=== PATIENT | female | born 1985 | race Caucasian/White ===

== ENCOUNTER 2017-01-12 13:13 | Outpatient (CLI) | END 2017-01-12 13:14 | disposition short-term general hospital (02) | LOC: AMBL 13:13 | PROVIDERS: ATTEND Internal Medicine Geriatric Medicine | DX: R55 Syncope and collapse (principal); R10.9 Unspecified abdominal pain; R10.2 Pelvic and perineal pain; R11.0 Nausea ==

== ENCOUNTER 2017-04-12 02:44 | Emergency (ER) ==
[2017-04-12 02:59] VITALS: BP 127/83; TEMP 98.5; BMI 39.9
[2017-04-12] MEDS ORDERED: SODIUM CHLORIDE 1,000 ML IV STA (03:19)
[2017-04-12] MEDS ORDERED: MORPHINE 2 MG/ML SYRINGE IVP PRN (03:19)
[2017-04-12] MEDS ORDERED: TORADOL IVP STA (03:20)
[2017-04-12] MEDS ORDERED: ZOFRAN 4 MG/2 ML IVP STA (03:20)
[2017-04-12] MEDS ORDERED: MORPHINE 2 MG/ML SYRINGE ONE (04:10)
--- NOTE | 2017-04-12 04:45 | CT ---
EXAM: CT scan abdomen pelvis without contrast HISTORY: Flank pain COMPARISON: CT scan abdomen pelvis 03/03/2011 FINDINGS: Contiguous axial images obtained from lung bases to the symphysis pubis without contrast u tilizing 3-mm collimation. Sagittal and coronal reconstructions were imaged and reviewed.. The visu alized lung bases are clear. The gallbladder is fluid filled without cholelithiasis. The liver, lawson creas, spleen and adrenal glands have normal unenhanced CT appearance.. Nonobstructive renal calculi are noted bilaterally in the 3 mm range. There is no evidence of ureterolithiasis. The abdominal a lachelle is normal in course and caliber. There is a normal appendix.. There has been prior hysterectom y. The adnexal abnormalities identified. There are no lytic or blastic lesions. IMPRESSION: Nonobstructive bilateral nephrolithiasis. Status post hysterectomy. No evidence of free fluid or inflammatory changes.
--- NOTE | 2017-04-12 05:40 | ED.PDOC ---
General ED Provider: Dr. MARY PAREKH-ER Chief Complaint: Back Pain Stated Complaint: my back hurts--i have kidney stones Time Seen by Physician: 03:00 Mode of Arrival: Walk-In Information Source: Patient Exam Limitations: No limitations Nursing and Triage Documentation Reviewed and Agree: Yes Reviewed sepsis parameters & appropriate labs ordered?: Yes System Inflammatory Response Syndrome: Not Applicable Sepsis Protocol: For patient's 13 years and over: Temp is 96.8 and below OR 101 and greater Pulse >90 BPM Resp >20/minute Acutely Altered Mental Status Are patient's symptoms suggestive of a new infection, such as: -Pneumonia -Skin, Soft Tissue -Endocarditis -UTI -Bone, Joint Infection -Implantable Device -Acute Abdominal Infection -Wound Infection -Meningitis -Blood Stream Catheter Infection -Unknown Musculoskeletal Complaint Exam - Back Pain Complaint/Exam Mechanism of Injury: Reports: No known trauma Onset/Duration: several hours Symptoms Are: Still present Timing: Constant Initial Severity: Mild Current Severity: Moderate Location: Reports: Discrete Character: Reports: Dull, Spasmodic Aggravating: Reports: Movements, Lifting Alleviating: Reports: None Associated Signs and Symptoms: Reports: Abdominal pain, Flank pain. Denies: Swelling, Redness, Bruising, Fever, Weakness, Numbness, Tingling, Bladder incontinence Related History: Reports: Similar episode Paraspinal Muscle Spasm: No Scoliosis: No SLR Test: Right Negative, Left Negative Hip Motion Testing Pain: Right Negative, Left Negative Focal Weakness: Present: None Focal Sensory Loss: Present: None Gait: Present: Abnormal Differential Diagnoses: Herniated Disk, Renal Colic, Strain, Sprain Review of Systems - Review Of Systems Constitutional: Reports: No symptoms Eyes: Reports: No symptoms Ears, Nose, Mouth, Throat: Reports: No symptoms Respiratory: Reports: No symptoms Cardiac: Reports: No symptoms GI: Reports: No symptoms : Reports: No symptoms Musculoskeletal: Reports: Back pain, Muscle pain Skin: Reports: No symptoms Neurological: Reports: No symptoms Endocrine: Reports: No symptoms Hematologic/Lymphatic: Reports: No symptoms All Other Systems: Reviewed and Negative Past Medical History - Past Medical History Previously Healthy: Yes Endocrine: Reports: Unknown Cardiovascular: Reports: Unknown Respiratory: Reports: Unknown Hematological: Reports: Unknown Gastrointestinal: Reports: Unknown Genitourinary: Reports: Kidney stones Neuro/Psych: Reports: None Musculoskeletal: Reports: None Cancer: Reports: None Last Menstrual Period: 2013 - Surgical History General Surgical History: Reports: Unknown - Family History Family History: Reports: Unknown - Social History Smoking Status: Current every day smoker, Light tobacco smoker Hx Substance Use: No Alcohol Screening: None - Immunizations Tetanus Shot up to Date: Yes Physical Exam - Physical Exam Appearance: Well-appearing, No pain distress, Well-nourished Pain Distress: Mild Eyes: MARTIN, EOMI, Conjunctiva clear ENT: Ears normal, Nose normal, Oropharynx normal Neck: Supple Respiratory: Airway patent, Breath sounds clear, Breath sounds equal, Respirations nonlabored Cardiovascular: RRR, Pulses normal, No rub, No murmur GI/: Soft, Nontender, No masses, Bowel sounds normal, No Organomegaly Musculoskeletal: No edema, No calf tenderness, Limited ROM Skin: Warm, Dry, Normal color Neurological: Sensation intact, Motor intact, Reflexes intact, Cranial nerves intact, Alert, Oriented Psychiatric: Affect appropriate, Mood appropriate Interpretation - Radiology Interpretation Radiology Interpretation By: Radiologist Radiology Results: Negative Exam Interpreted: CT Scan Critical Care Note - Critical Care Note Total Time (mins): 0 Course - Course Hematology/Chemistry: 04/12/17 03:45 04/12/17 03:45 Orders, Labs, Meds: Lab Review 04/12/17 04/12/17 04/12/17 03:05 03:45 03:45 WBC 9.53 RBC 3.90 L Hgb 13.2 Hct 38.3 MCV 98.2 MCH 33.8 H MCHC 34.5 RDW Coeff of Desmond 13.3 Plt Count 277 Immature Gran % (Auto) 0.2 Neut % (Auto) 46.6 Lymph % (Auto) 44.7 Glasscock % (Auto) 5.2 Eos % (Auto) 2.6 Baso % (Auto) 0.7 Immature Gran # (Auto) 0.0 Neut # 4.4 Lymph # 4.3 H Glasscock # 0.5 Eos # 0.3 Baso # 0.1 Sodium 144 Potassium 3.8 Chloride 112 H Carbon Dioxide 19 L Anion Gap 16.8 BUN 17 Creatinine 0.85 Estimated GFR (MDRD) 79.00 BUN/Creatinine Ratio 20.00 Glucose 72 Calcium 9.0 Total Bilirubin 0.3 AST 15 ALT 19 Alkaline Phosphatase 67 Total Protein 7.0 Albumin 3.6 Globulin 3.4 Albumin/Globulin Ratio 1.06 Urine Color Yellow Urine Clarity Clear Urine pH 6.0 Ur Specific [place] 1.025 Urine Protein Negative Urine Glucose (UA) Negative Urine Ketones Negative Urine Blood Negative Urine Nitrite Negative Urine Bilirubin Negative Urine Urobilinogen 0.2 Ur Leukocyte Esterase Negative Orders Category Date Time Status ED IV/MEDIPORT/POWERPORT .ONCE EMERGENCY 04/12/17 03:19 Active CBC W/ AUTO DIFF Stat LAB 04/12/17 03:45 Completed COMPREHENSIVE METABOLIC PANEL Stat LAB 04/12/17 03:45 Completed UA [URINALYSIS C & S IF INDICATED] Stat LAB 04/12/17 03:05 Completed 0.9 % Sodium Chloride [Saline Flush] MEDS 04/12/17 03:19 Ordered 1 syr IVF PRN PRN Ketorolac Tromethamine [Toradol] MEDS 04/12/17 03:20 Discontinued 30 mg IVP ONCE STA Morphine Sulfate [Morphine 2 mg/ml Syringe] MEDS 04/12/17 03:19 Ordered 2 mg IVP Q4H PRN Ondansetron HCl/Pf [Zofran 4 mg/2 ml] MEDS 04/12/17 03:20 Discontinued 4 mg IVP ONCE STA Sodium Chloride 0.9% [Sodium Chloride] 1,000 ml MEDS 04/12/17 03:19 Active IV 125 mls/hr CT ABDOMEN/PELVIS WO CONTRAST Stat RADS 04/12/17 03:20 Completed Medications Generic Name Dose Route Start Last Admin Trade Name Freq PRN Reason Stop Dose Admin Sodium Chloride 1,000 mls @ 125 mls/hr 04/12/17 03:19 04/12/17 03:54 Sodium Chloride IV 04/12/17 11:18 125 mls/hr .Q8H STA Administration Morphine Sulfate 2 mg 04/12/17 03:19 04/12/17 04:10 Morphine 2 Mg/Ml Syringe IVP 2 mg Q4H PRN Administration Abdominal Pain Sodium Chloride 1 syr 04/12/17 03:19 04/12/17 03:57 Saline Flush IVF 1 syr PRN PRN Administration To flush IV Discontinued Medications Generic Name Dose Route Start Last Admin Trade Name Freq PRN Reason Stop Dose Admin Ketorolac Tromethamine 30 mg 04/12/17 03:20 04/12/17 03:56 Toradol IVP 04/12/17 03:21 30 mg ONCE STA Administration Ondansetron HCl 4 mg 04/12/17 03:20 04/12/17 03:55 Zofran 4 Mg/2 Ml IVP 04/12/17 03:21 4 mg ONCE STA Administration Vital Signs: Temp Pulse Resp BP Pulse Ox 04/12/17 02:46 98.5 F 87 20 127/83 99 Departure - Departure Time of Disposition: 05:40 Disposition: HOME SELF-CARE Discharge Problem: Backache Instructions: Acute Low Back Pain (ED) Condition: Good Pt referred to PMD for follow-up: Yes IPMP verified?: No Additional Instructions: norco 7.5mg q 4hrs prn pain #10==f/u with pcp Allergies/Adverse Reactions: Allergies No Known Drug Allergies Adverse Reaction (Verified 04/12/17 02:58) Home Medications: Ambulatory Orders Albuterol Sulfate [Proair Hfa] 2 puff IH Q4H PRN 04/12/17
== END 2017-04-12 05:52 | disposition home or self-care (01) ==
LOC: ED 02:44
DX: M54.5 Low back pain (principal); R10.9 Unspecified abdominal pain; Z87.442 Personal history of urinary calculi; F17.210 Nicotine dependence, cigarettes, uncomplicated
CPT/HCPCS: 36415; 80053; 81001; 85025; 96361; 96374; 96375; 99283

== ENCOUNTER 2017-10-18 10:10 | Outpatient (CLI) ==
[2017-10-18 14:18] VITALS: BMI 51.1
== END 2017-10-18 10:15 | disposition short-term general hospital (02) ==
LOC: AMBL 10:10
PROVIDERS: ATTEND Internal Medicine
DX: R11.2 Nausea with vomiting, unspecified (principal); R19.7 Diarrhea, unspecified; R10.11 Right upper quadrant pain; R10.12 Left upper quadrant pain

== ENCOUNTER 2017-10-18 10:20 | Observation (INO) ==
[2017-10-18] MEDS ORDERED: MORPHINE 4 MG/ML SYRINGE IVP STA ×3 (10:43→12:05)
[2017-10-18] MEDS ORDERED: ZOFRAN 4 MG/2 ML IVP STA ×2 (10:43→12:05)
[2017-10-18] MEDS ORDERED: SODIUM CHLORIDE 1,000 ML IV STA (10:44)
[2017-10-18] MEDS ORDERED: MORPHINE 4 MG/ML VIAL IVP STA (11:15)
--- NOTE | 2017-10-18 12:12 | DI ---
EXAM: CHEST FRONTAL VIEW HISTORY: Cough. COMPARISON: None FINDINGS: Heart size and mediastinum within normal limits. Lungs are free of infiltrate. No co nsolidation or pleural fluid. There is no pneumothorax or acute bony finding. IMPRESSION: Findings within normal limits.
--- NOTE | 2017-10-18 12:17 | CT ---
EXAM: CT Abdomen without contrast. CT Pelvis without contrast. HISTORY: Right upper quadrant pain. COMPARISON: 04/12/2017. TECHNIQUE: Multiple axial images of the abdomen and pelvis were obtained without intravenous contras t. Images were reformatted in the sagittal and coronal plane. FINDINGS: Please note that evaluation of the abdominal and pelvic structures is limited due to lack of intravenous contrast. The lung bases are clear. No acute osseous abnormality identified. The liver, gallbladder, pancreas, spleen, and adrenal glands demonstrate normal contour. Nonobstructing bilateral renal calculi are present measuring up to 0.3 cm. No hydronephrosis or raina nephric inflammation detected. No ureteral or bladder calculi are seen. There is moderate long segment wall thickening of the entire small bowel with adjacent mesenteric ingrid ma and small amount of free fluid. No transition point identified. Colon is normal in caliber. The appendix is normal. No free air detected. Tiny fat-containing umbilical hernia is present. Uterus is absent. Bladder is unremarkable IMPRESSION: 1. Moderate diffuse enteritis with associated mesenteric edema and small amount of ascites. 2. Bilateral nephrolithiasis without obstructive uropathy.
--- NOTE | 2017-10-18 12:20 | US ---
EXAM: ULTRASOUND ABDOMEN LIMITED HISTORY: Abdominal pain FINDINGS: Ultrasound abdomen, limited. Reid-scale ultrasound and color Doppler was performed. Live r size was measured at 13 cm, within normal limits. The liver parenchyma demonstrated normal sonograp hic appearance without evidence of intrahepatic biliary dilatation or focal lesion. Patent and hepato pedal main portal vein. No evidence of gallbladder stones or sludge. Gallbladder wall thickness was normal at 0.25 centimete rs and the common duct diameter normal at 0.47 centimeters. The visualized portions of the pancreas appeared unremarkable. IMPRESSION: Findings within normal limits sonographically.
--- NOTE | 2017-10-18 12:57 | ED.PDOC ---
General ED Provider: Dr. KANDY LAU Chief Complaint: Nausea/Vomiting Stated Complaint: nausea, vomiting diarrhea Time Seen by Physician: 10:30 (seen with nurse at bedside at all times ) Mode of Arrival: Ambulance Information Source: Patient, EMT Exam Limitations: No limitations Referred to ED by: Other (cramping abdominal pain multile bouts of diarrhea ) Nursing and Triage Documentation Reviewed and Agree: Yes Does patient meet sepsis criteria?: No If yes, has appropriate treatment been initiated?: No System Inflammatory Response Syndrome: Not Applicable Sepsis Protocol: For patient's 13 years and over: Temp is 96.8 and below OR 101 and greater Pulse >90 BPM Resp >20/minute Acutely Altered Mental Status Are patient's symptoms suggestive of a new infection, such as: -Pneumonia -Skin, Soft Tissue -Endocarditis -UTI -Bone, Joint Infection -Implantable Device -Acute Abdominal Infection -Wound Infection -Meningitis -Blood Stream Catheter Infection -Unknown GI Complaint Exam - Vomiting/Diarrhea Complaint/Exam Onset/Duration: 1 day Symptoms Are: Still present Episodes of Vomiting over last 24 Hours: 5 Episodes of Diarrhea Over Last 24 Hours: 7 Initial Severity: Moderate Current Severity: None Character of Vomiting: Reports: Non-bilious Character of Diarrhea: Reports: Watery, Mucoid, Malodorous. Denies: Bloody Aggravating: Reports: None Alleviating: Reports: None Associated Signs and Symptoms: Denies: Dizziness, Melena, Hematemesis, Fever, Abdominal pain, Cramping Related History: Reports: Similar episode Last Oral Intake: today Last Bowel Movement: today Non-GI Risk Factors: Reports: None Surgical Obstruction Risk Factors: Reports: None Related Surgical History: Reports: None Abdominal Findings: Present: None Differential Diagnoses: Bowel Obstruction, Cholecystitis, Cholelithiasis, Dehydration, Viral Gastroenteritis, Bacterial Gastroenteritis, UTI Review of Systems - Review Of Systems Constitutional: Reports: Malaise Eyes: Reports: No symptoms Ears, Nose, Mouth, Throat: Reports: No symptoms Respiratory: Reports: No symptoms Cardiac: Reports: No symptoms GI: Reports: Abdominal pain, Diarrhea, Nausea, Vomiting : Reports: No symptoms Musculoskeletal: Reports: No symptoms Skin: Reports: No symptoms Neurological: Reports: No symptoms Endocrine: Reports: No symptoms Hematologic/Lymphatic: Reports: No symptoms All Other Systems: Reviewed and Negative Past Medical History - Past Medical History Previously Healthy: Yes Endocrine: Reports: Unknown Cardiovascular: Reports: Unknown Respiratory: Reports: Unknown Hematological: Reports: Unknown Gastrointestinal: Reports: Unknown Genitourinary: Reports: Kidney stones Neuro/Psych: Reports: None Musculoskeletal: Reports: None Cancer: Reports: None Last Menstrual Period: none - Surgical History General Surgical History: Reports: Unknown - Family History Family History: Reports: Unknown - Social History Smoking Status: Current every day smoker, Light tobacco smoker Hx Substance Use: No Alcohol Screening: None Physical Exam - Physical Exam Appearance: Ill-appearing Ill-appearing: Mild Pain Distress: Moderate Eyes: MARTIN, EOMI, Conjunctiva clear ENT: Ears normal, Nose normal, Dry mucosa Respiratory: Airway patent, Breath sounds clear, Breath sounds equal, Respirations nonlabored Cardiovascular: RRR, Pulses normal, No rub, No murmur GI/: Soft, Nontender, No masses, Bowel sounds normal, No Organomegaly Musculoskeletal: Normal strength, ROM intact, No edema, No calf tenderness Skin: Warm, Dry, Normal color Neurological: Sensation intact, Motor intact, Reflexes intact, Cranial nerves intact, Alert, Oriented Psychiatric: Affect appropriate, Mood appropriate Interpretation - Radiology Interpretation Radiology Interpretation By: Radiologist Radiology Results: Negative Exam Interpreted: CXR, CT Scan - [employer] Rate: Normal Rhythm: Sinus Ectopy: None - EKG Interpretation Rate: Normal Rhythm: Sinus Ectopy: None [place]: NL ST Segment: Normal Physician Notification - Case Discussed Physician Notified: jaime drew Time of Notification: 13:04 Admit To: Inpatient Critical Care Note - Critical Care Note Total Time (mins): 0 Course - Course Hematology/Chemistry: 10/18/17 10:52 10/18/17 10:52 Orders, Labs, Meds: Lab Review 10/18/17 10/18/17 10:52 10:52 WBC 18.26 H RBC 4.70 Hgb 14.7 Hct 44.4 MCV 94.5 MCH 31.3 H MCHC 33.1 RDW Coeff of Desmond 12.5 Plt Count 343 Immature Gran % (Auto) 0.4 Neut % (Auto) 81.8 Lymph % (Auto) 11.4 Anderson % (Auto) 5.1 Eos % (Auto) 1.0 Baso % (Auto) 0.3 Immature Gran # (Auto) 0.1 Neut # (Auto) 14.9 H Lymph # (Auto) 2.1 Anderson # (Auto) 0.9 Eos # (Auto) 0.2 Baso # (Auto) 0.1 Sodium 138 Potassium 5.0 Chloride 110 H Carbon Dioxide 18 L Anion Gap 15.0 BUN 19 H Creatinine 0.85 Estimated GFR (MDRD) 79.00 BUN/Creatinine Ratio 22.35 Glucose 127 H Calcium 9.1 Total Bilirubin 0.7 AST 24 ALT 29 Alkaline Phosphatase 77 Total Protein 7.3 Albumin 3.5 Globulin 3.8 Albumin/Globulin Ratio 0.92 Amylase 34 Lipase 20 Orders Category Date Time Status EKG-(ED ONLY) Stat CARDIO 10/18/17 10:45 Completed NPO REMINDER: IMAGING ONCE CARE 10/18/17 10:46 Active AMYLASE Stat LAB 10/18/17 10:52 Completed CBC W/ AUTO DIFF Stat LAB 10/18/17 10:52 Completed COMPREHENSIVE METABOLIC PANEL Stat LAB 10/18/17 10:52 Completed LIPASE Stat LAB 10/18/17 10:52 Completed PARTIAL THROMBOPLASTIN TIME Stat LAB 10/18/17 10:46 Ordered PT WITH INR Stat LAB 10/18/17 10:46 Ordered UA [URINALYSIS C & S IF INDICATED] Stat LAB 10/18/17 10:45 Uncollected Morphine Sulfate [Morphine 4 mg/ml Syringe] MEDS 10/18/17 10:43 Discontinued 4 mg IVP ONCE STA Morphine Sulfate [Morphine 4 mg/ml Syringe] MEDS 10/18/17 11:21 Discontinued 4 mg IVP ONCE STA Morphine Sulfate [Morphine 4 mg/ml Syringe] MEDS 10/18/17 12:05 Discontinued 4 mg IVP ONCE STA Ondansetron HCl/Pf [Zofran 4 mg/2 ml] MEDS 10/18/17 10:43 Discontinued 4 mg IVP ONCE STA Ondansetron HCl/Pf [Zofran 4 mg/2 ml] MEDS 10/18/17 12:05 Discontinued 4 mg IVP ONCE STA Sodium Chloride 0.9% [Sodium Chloride] 1,000 ml MEDS 10/18/17 10:44 Active IV 125 mls/hr CHEST, 1V AP ONLY Stat RADS 10/18/17 10:[address] ABDOMEN/PELVIS WO CONTRAST Stat RADS 10/18/17 10:45 Completed ULTRASOUND ABDOMEN, RT. UPPER QUAD [U/S ABDOMEN, RT. RADS 10/18/17 10:46 Completed UPPER QUAD] Stat Medications Generic Name Dose Route Start Last Admin Trade Name Freq PRN Reason Stop Dose Admin Sodium Chloride 1,000 mls @ 125 mls/hr 10/18/17 10:44 10/18/17 11:00 Sodium Chloride IV 10/18/17 18:43 125 mls/hr .Q8H STA Administration Discontinued Medications Generic Name Dose Route Start Last Admin Trade Name Floresita PRN Reason Stop Dose Admin Morphine Sulfate 4 mg 10/18/17 10:43 10/18/17 10:59 Morphine 4 Mg/Ml Syringe IVP 10/18/17 10:44 4 mg ONCE STA Administration Morphine Sulfate 4 mg 10/18/17 11:21 10/18/17 11:23 Morphine 4 Mg/Ml Syringe IVP 10/18/17 11:22 4 mg ONCE STA Administration Morphine Sulfate 4 mg 10/18/17 12:05 10/18/17 12:25 Morphine 4 Mg/Ml Syringe IVP 10/18/17 12:06 4 mg ONCE STA Administration Ondansetron HCl 4 mg 10/18/17 10:43 10/18/17 10:57 Zofran 4 Mg/2 Ml IVP 10/18/17 10:44 4 mg ONCE STA Administration Ondansetron HCl 4 mg 10/18/17 12:05 10/18/17 12:25 Zofran 4 Mg/2 Ml IVP 10/18/17 12:06 4 mg ONCE STA Administration Vital Signs: Temp Pulse Resp BP Pulse Ox 10/18/17 10:20 97.9 F 117 H 20 114/103 H 96 Departure - Departure Time of Disposition: 13:04 Disposition: ADMITTED INPATIENT Discharge Problem: Nausea, Vomiting Abdominal pain Qualifiers: Abdominal location: unspecified location Qualified Code(s): R10.9 - Unspecified abdominal pain Condition: Good Pt referred to PMD for follow-up: Yes IPMP verified?: No Additional Instructions: Please call your Family Physician as soon as possible to schedule a follow-up appointment. Allergies/Adverse Reactions: Allergies clarithromycin [From Biaxin] Adverse Reaction (Verified 10/18/17 10:25) Home Medications: Ambulatory Orders Albuterol Sulfate [Proair Hfa] 2 puff IH Q4H PRN 04/12/17
[2017-10-18] MEDS ORDERED: ROCEPHIN 1 GM in SODIUM CHLORIDE 50 ML IV STA (13:01)
[2017-10-18] MEDS ORDERED: MORPHINE 2 MG/ML SYRINGE IVP PRN (13:02)
[2017-10-18] MEDS ORDERED: ROCEPHIN ONE (13:07)
[2017-10-18 14:18] VITALS: BMI 51.1
[2017-10-18] MEDS: SODIUM CHLORIDE 1,000 ML IV SCH (15:26)
[2017-10-18] MEDS: ZOFRAN 4 MG/2 ML IVP PRN (17:35)
[2017-10-18] MEDS: MORPHINE 4 MG/ML VIAL IVP PRN ×2 (17:36→23:43)
[2017-10-18] MEDS: FLAGYL 500 MG/100 ML 500 MG in PREMIX 100 ML NS 1 BAG IV SCH ×2 (17:36→23:24)
[2017-10-19] MEDS: SODIUM CHLORIDE 1,000 ML IV SCH ×2 (01:54→16:20)
[2017-10-19] MEDS: MORPHINE 4 MG/ML VIAL IVP PRN ×3 (05:43→21:00)
[2017-10-19] MEDS: FLAGYL 500 MG/100 ML 500 MG in PREMIX 100 ML NS 1 BAG IV SCH ×3 (05:45→17:57)
[2017-10-19] MEDS: ZOFRAN 4 MG/2 ML IVP PRN ×2 (11:59→22:57)
[2017-10-20] MEDS: FLAGYL 500 MG/100 ML 500 MG in PREMIX 100 ML NS 1 BAG IV SCH ×2 (00:20→07:01)
[2017-10-20 02:08] VITALS: BP 98/64
[2017-10-20] MEDS: MORPHINE 4 MG/ML VIAL IVP PRN (05:23)
[2017-10-20] MEDS: SODIUM CHLORIDE 1,000 ML IV SCH (07:02)
[2017-10-20 07:38] VITALS: TEMP 98.4
--- NOTE | 2017-10-20 08:15 | PCM.HOSP ---
- Observation Care Discharge 2017472 OBS Care Discharge (51227): 10/20 - Initial Observation Care [id number] Low Complexity 30 Minutes (20616): 10/18 - Subsequent Observation Care [id number] 35 Minutes per Day (27806): 10/19
--- NOTE | 2017-10-22 08:33 | HP ---
DATE OF SERVICE: 10/18/17 HISTORY OF PRESENT ILLNESS: This is a 31-year-old female who has been having diarrhea for one day, almost 10 times, abdominal cramping. The patient was recently treated for urinary tract infection with Bactrim at [facility], [place]. She came to the emergency room and was seen by Dr. Armando. White count was 18,000 with left shift. Chemistry normal. Blood pressure elevated. No fever. CT of abdomen and pelvis showed enteritis. At that time, the patient was admitted to observation for IV fluids and acute gastroenteritis and rule out C. Diff. REVIEW OF SYSTEMS: CONSTITUTIONAL: Weakness, tiredness. No fever, no chills. HEENT: Normal. ENDOCRINE: No weight gain; no weight loss. CVS: No chest pain. No PND, no orthopnea. No shortness of breath. No PND, no orthopnea. RESPIRATORY: No cough, no congestion. No hemoptysis. GI: Diarrhea, abdominal pain. No nausea, no vomiting. No melena. : No hematuria. No polyuria. MUSCULOSKELETAL: No joint swelling. PSYCHIATRIC: Not anxious. No depression. No suicidal thoughts. No homicidal thoughts. SKIN: Intact, no open lesions. PAST MEDICAL HISTORY: Headaches Asthma Pneumonia GERD Diverticulosis Anxiety disorder PAST SURGICAL HISTORY: Ovarian cyst Partial hysterectomy MRSA with surgical intervention PERSONAL HISTORY: The patient does not smoke or drink alcohol. FAMILY HISTORY: Significant for bypass surgery, cervical cancer. MEDICATIONS: (HOME) Albuterol ALLERGIES: CLARITHROMYCIN PHYSICAL EXAMINATION: V/S: BP 114/103, respiratory rate 20, heart rate 117, temperature 97.9, saturation 96%. GENERAL: Sick looking lady, morbidly obese, lying in bed not in any distress. HEENT: Atraumatic, normocephalic. No scleral icterus. Mucosa dry. NECK: Supple. No JVD, no bruit. No lymphadenopathy. No thyromegaly. HEART: S1, S2 normal. No murmur. No cyanosis or clubbing. No ascites. LUNGS: Clear to auscultation. No rales or rhonchi. ABDOMEN: Soft. Tenderness, right-sided. Bowel sounds are sluggish. No CVA tenderness. No rigidity or guarding. EXTREMITIES: No pedal edema. No cyanosis or clubbing MUSCULOSKELETAL: Normal joints, no swelling. NEUROLOGIC: The patient is awake and alert. SKIN: Intact; no open lesions. LYMPHATIC: No lymph nodes palpable. LABS: Sodium 138, potassium 5.0, chloride 110, bicarb 18, BUN 19, creatinine 0.85, glucose 127. White count 8.26, hemoglobin 14.7, hematocrit 44.4, platelet count 343. ASSESSMENT: 1. ACUTE ENTERITIS, RULE OUT C. DIFF, RECENT ANTIBIOTIC USE 2. BRONCHIAL ASTHMA 3. MORBID OBESITY 4. LEUKOCYTOSIS 5. DEHYDRATION PLAN: 1. Admit the patient to the regular floor. 2. Flagyl 500 mg q.8hr. 3. Isolation protochol. 4. IV fluids. 5. Toradol for pain. TIME SPENT: MORE THAN 65 minutes MTDD
--- NOTE | 2017-10-22 13:53 | PN ---
DATE OF SERVICE: 10/19/17 SUBJECTIVE: The patient is admitted with diarrhea, elevated white count. The patient was recently given antibiotics and checking stools for C. diff but she did not have any more bowel movements this admission. Hemoglobin did drop significantly from 14.7 to 11.0. White count is normalized from 18,000 to 8.09. REVIEW OF SYSTEMS: CONSTITUTIONAL: No fever, no chills. HEENT: Normal. ENDOCRINE: No weight gain, no weight loss. CVS: No angina symptoms. No CHF symptoms. No palpitations. No atypical chest pain for CAD. No shortness of breath. No PND, no orthopnea. RESPIRATORY: No cough, no hemoptysis. GI: No nausea, no vomiting. No abdominal pain. : No hematuria. No polyuria. MUSCULOSKELETAL: No joint swelling. PSYCHIATRIC: Not anxious. No depression. No suicidal thoughts. No homicidal thoughts. SKIN: Intact. No rash. PHYSICAL EXAMINATION: V/S: BP 134/86, respiratory rate 18, heart rate 91, temperature 98. Saturation 100%. HEENT: Normocephalic, atraumatic. Mucosa dry. Pallor positive. No icterus. NECK: Supple. No JVD, no carotid bruit. No lymphadenopathy. LUNGS: Decreased breath sounds. Clear to auscultation. No rales or rhonchi. HEART: S1, S2 normal. No S3. No murmur, gallop or regurgitation. ABDOMEN: Soft, nontender. Bowel sounds active. No rigidity. No rebound or guarding. No CVA tenderness. EXTREMITIES: No cyanosis, clubbing or pedal edema. MUSCULOSKELETAL: No joint swelling. NEUROLOGIC: Awake, alert. No focal deficit. LYMPHATIC: No lymph nodes palpable. SKIN: Intact. LABS: Sodium 138, potassium 3.8, chloride 111, bicarb 21, BUN 11, creatinine 0.73, glucose 102. White count 8.09, hemoglobin 11.0, hematocrit 33.3, platelet count 268. ASSESSMENT: 1. GASTROENTERITIS 2. DIARRHEA, RULE OUT C. DIFF 3. HISTORY OF DIVERTICULOSIS 4. ANXIETY 5. ASTHMA PLAN: 1. Continue Flagyl IV q.8 2. IV fluids 3. Daily I & O's 4. Still have to collect stool for occult blood test TIME SPENT: More than 35 minutes MTDD
--- NOTE | 2017-10-24 07:54 | DS ---
DATE OF SERVICE: 10/20/17 FINAL DIAGNOSIS: 1. Gastroenteritis 2. Diarrhea 3. Dehydration 4. Anemia 5. Asthma, mild 6. Bronchitis 7. Morbid obesity 8. Anxiety DISCHARGE INSTRUCTIONS: Discharge the patient home. Followup with the clinic one time for the followup. NEW PRESCRIPTIONS: Flagyl for a total of 10 days Probiotics and yogurt DIET INSTRUCTIONS: Healthy diet and weight loss diet ACTIVITY: As tolerated DISEASE SPECIFIC EDUCATION: Diarrhea Dehydration Increased hydration been discussed and verbalized understanding. HOSPITAL COURSE: Deborah Blanco came to the emergency room with the abdominal pain, diarrhea almost 10 episodes and watery. WBC was 18,000 with left shift, no fever or chills. BUN was elevated to 19. CT of abdomen and pelvis showed the Enteritis. The patient had almost 1-2 months ago was admitted to the [facility] for the UTI and was given Bactrim. In review of this the Stool for C-Diff was also ordered. Every since she was admitted she did not have any bowel movements. She is up and about walking. No fever or abdominal pain. Kept asking for the pain medication and we refused to given any pain medication. Up and about walking and did not have any complications. As the patient been doing good and afebrile , no abdominal pain being discharged home. TIME SPENT: MORE THAN 65 MINUTES MTDD
== END 2017-10-20 11:48 | disposition home or self-care (01) ==
LOC: ED 10:20 → MEDSURG B 13:13 → INTOOBSV 13:13
PROVIDERS: ADMIT Emergency Medicine; ATTEND Emergency Medicine
DX: R11.2 Nausea with vomiting, unspecified (principal); R19.7 Diarrhea, unspecified; R53.81 Other malaise; R10.9 Unspecified abdominal pain; Z72.0 Tobacco use; J45.909 Unspecified asthma, uncomplicated; E66.01 Morbid (severe) obesity due to excess calories; D72.829 Elevated white blood cell count, unspecified; E86.0 Dehydration; D64.9 Anemia, unspecified; F41.9 Anxiety disorder, unspecified; J40 Bronchitis, not specified as acute or chronic; K52.9 Noninfective gastroenteritis and colitis, unspecified
CPT/HCPCS: 36415; 80053; 80306; 81001; 82150; 83690; 85025; 93005; 93010; 96361; 96365; 96375; 96376; 99284

== ENCOUNTER 2017-11-05 12:09 | Emergency (ER) ==
[2017-11-05 12:18] VITALS: BP 138/96; TEMP 98.1; BMI 51.0
[2017-11-05] MEDS ORDERED: TORADOL PO STA (12:51)
--- NOTE | 2017-11-05 13:23 | ED.PDOC ---
General ED Provider: Dr. MARY GUY Chief Complaint: Fall Stated Complaint: Back pain. Walking down steps and missed a step falling down steps at grandmothers 2 days ago and landed on buttocks striking mid to lower thoracic spine into lumbar spine. Was carrying table down the steps. Pain down lt leg. Ambulates without difficulty. Denies neuropathic symptoms Time Seen by Physician: 12:35 Mode of Arrival: Walk-In Information Source: Patient Exam Limitations: No limitations Nursing and Triage Documentation Reviewed and Agree: No Does patient meet sepsis criteria?: No If yes, has appropriate treatment been initiated?: No System Inflammatory Response Syndrome: Not Applicable Sepsis Protocol: For patient's 13 years and over: Temp is 96.8 and below OR 101 and greater Pulse >90 BPM Resp >20/minute Acutely Altered Mental Status Are patient's symptoms suggestive of a new infection, such as: -Pneumonia -Skin, Soft Tissue -Endocarditis -UTI -Bone, Joint Infection -Implantable Device -Acute Abdominal Infection -Wound Infection -Meningitis -Blood Stream Catheter Infection -Unknown Review of Systems - Review Of Systems Constitutional: Reports: No symptoms Eyes: Reports: No symptoms Ears, Nose, Mouth, Throat: Reports: No symptoms Respiratory: Reports: No symptoms Cardiac: Reports: No symptoms GI: Reports: No symptoms : Reports: No symptoms Musculoskeletal: Reports: Back pain Skin: Reports: No symptoms Neurological: Reports: No symptoms Endocrine: Reports: No symptoms Hematologic/Lymphatic: Reports: No symptoms All Other Systems: Reviewed and Negative Past Medical History - Past Medical History Previously Healthy: Yes Endocrine: Reports: Unknown Cardiovascular: Reports: Unknown Respiratory: Reports: Unknown Hematological: Reports: Unknown Gastrointestinal: Reports: Unknown Genitourinary: Reports: Kidney stones Neuro/Psych: Reports: None Musculoskeletal: Reports: None Cancer: Reports: None Last Menstrual Period: NA - Surgical History General Surgical History: Reports: Unknown - Family History Family History: Reports: Unknown - Social History Smoking Status: Current every day smoker, Light tobacco smoker Hx Substance Use: No Alcohol Screening: None Physical Exam - Physical Exam Appearance: Well-appearing, No pain distress, Well-nourished, Obese Ill-appearing: None Pain Distress: Mild Eyes: MARTIN, EOMI, Conjunctiva clear ENT: Ears normal, Nose normal, Oropharynx normal Respiratory: Airway patent, Breath sounds clear, Breath sounds equal, Respirations nonlabored Cardiovascular: RRR, Pulses normal, No rub, No murmur GI/: Soft, Nontender, No masses, Bowel sounds normal, No Organomegaly Musculoskeletal: Normal strength (mild tenderness bilat lumbar sacral region and rt thoracolumbar spinal region), ROM intact, No edema, No calf tenderness Skin: Warm, Dry, Normal color Neurological: Sensation intact, Motor intact, Reflexes intact, Cranial nerves intact, Alert, Oriented Psychiatric: Affect appropriate, Mood appropriate Interpretation - Radiology Interpretation Radiology Interpretation By: Radiologist Radiology Results: No acute changes Exam Interpreted: CT Scan Xray Comments: deg thoracic and lumbar changes -see reportr Re-Evaluation - Re-Evaluation Time of Re-Evaluation: 14:15 Status: Improved Vital Signs Stable: Yes Appearance: NAD Lungs: Clear Skin: Warm and Dry Critical Care Note - Critical Care Note Total Time (mins): 0 Course - Course Orders, Labs, Meds: Orders Category Date Time Status Ketorolac Tromethamine [Toradol] MEDS 11/05/17 12:51 Discontinued 10 mg PO ONCE STA CT LUMBAR SPINE W/O CONTRAST Stat RADS 11/05/17 12:[address] THORACIC SPINE W/O CONTRAST Stat RADS 11/05/17 12:52 Completed Medications Discontinued Medications Generic Name Dose Route Start Last Admin Trade Name Freq PRN Reason Stop Dose Admin Ketorolac Tromethamine 10 mg 11/05/17 12:51 11/05/17 13:38 Toradol PO 11/05/17 12:52 10 mg ONCE STA Administration Vital Signs: Temp Pulse Resp BP Pulse Ox 11/05/17 12:13 98.1 F 97 H 16 138/96 H 99 Departure - Departure Time of Disposition: 14:20 Disposition: DISCH W/I HOSP TO SWING [facility] Discharge Problem: Strain of thoracic region, Lumbar strain, Degenerative disc disease, thoracic, Lumbar degenerative disc disease, Bilateral nephrolithiasis Instructions: Degenerative Disc Disease (ED), Lower Back Exercises (ED), Arthritis (ED) Condition: Good Pt referred to PMD for follow-up: Yes (within 1 week) IPMP verified?: No Additional Instructions: May Take Ibuprofen 200 mg 3 tabs every 6 hours as needed for pain Exercises as directed Allergies/Adverse Reactions: Allergies clarithromycin [From Biaxin] Adverse Reaction (Verified 11/05/17 12:13) Home Medications: Ambulatory Orders Albuterol Sulfate [Proair Hfa] 2 puff IH Q4H PRN 04/12/17 Disposition Discussed With: Patient
--- NOTE | 2017-11-05 13:51 | CT ---
EXAM: CT LUMBAR SPINE HISTORY: Back pain, fall, injury TECHNIQUE: CT lumbar spine without contrast. 3-mm axial sections. Coronal and sagittal reformation s. COMPARISON: 10/18/2017 CT abdomen and pelvis FINDINGS: No fracture or subluxation. Vertebral body heights are maintained. Early degenerative endplate arnett ges are seen mid to upper lumbar level. The lowermost fully formed disc space taken as L5/S1. There is disc bulging at L5/S1 which narrows the right neural foramen. Incomplete fusion of the posterior elements of the upper sacral segment is noted. No scoliosis. Sacroiliac joints are within normal li mits. Incidental note of small bilateral renal calculi measuring up to about 2.5 mm. IMPRESSION: 1. No acute fracture or subluxation. 2. Disc bulging, especially at L5/S1. This is stable. 3. 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 4. Early degenerative endplate changes. 5. Incidental note of bilateral nephrolithiasis.
--- NOTE | 2017-11-05 13:56 | CT ---
Exam: CT thoracic spine without contrast. HISTORY: Fell down stairs yesterday, pain more on the left side. Procedures: 3 mm contiguous axial images were obtained through the thoracic spine without the use of contrast. Sagittal and coronal reformatted images were also created and reviewed. Comparison: CT abdomen and pelvis 10/18/2017. Findings: There is multilevel mild degenerative disease throughout the thoracic spine with no acute f racture or listhesis. 12 rib-bearing, thoracic vertebrae are noted. Visualized portions of the ribs a ppear intact. The descending thoracic aorta is not dilated. Limited visualization of the adjacent pu lmonary parenchyma demonstrates no consolidation. There is no paraspinal fluid collection. Individu al disc levels are evaluated as follows At T1-2, T2-3 and T3-4 there are mild disc bulges without central spinal canal stenosis. Mild bilate ral neural foraminal stenosis is noted secondary to facet and uncinate hypertrophy. At T4-5 there is a mild disc bulge without central canal stenosis or significant neural foraminal chris nosis. At T5-6 there is a mild disc marginal osteophyte complex without midline central spinal canal stenosi s or significant neural foraminal stenosis. At T6-7 there is a mild disc marginal osteophyte complex without midline central spinal canal stenosi s or significant neural foraminal stenosis. At T7-8 there is a mild disc marginal osteophyte complex without midline central spinal canal stenosi s or significant neural foraminal stenosis. At T8-9 there is a disc marginal osteophyte complex which reduces the AP diameter of the spinal canal to 10 mm. There is no significant neural foraminal stenosis. At T9-10 there is no significant disc bulge, central spinal canal or neural foraminal stenosis. At T10-11 there is a mild disc bulge without midline central spinal canal stenosis or significant dorian ral foraminal stenosis. At T11-12 there is a posterior disc marginal osteophyte which does not result in significant central spinal canal stenosis or neural foraminal stenosis. At T12-L1 there is no significant disc bulge, central spinal canal or neural foraminal stenosis. Impressions: No acute fracture or listhesis in the thoracic spine. Multilevel mild degenerative disease as described. Mild central canal stenosis to 10 mm at T8-9. Findings were faxed to the emergency department at 1:45 p.m.
== END 2017-11-05 14:29 | disposition home or self-care (01) ==
LOC: ED 12:09
DX: S39.012A Strain of muscle, fascia and tendon of lower back, initial encounter (principal); S29.012A Strain of muscle and tendon of back wall of thorax, initial encounter; M51.34 Other intervertebral disc degeneration, thoracic region; M51.36 Other intervertebral disc degeneration, lumbar region; N20.0 Calculus of kidney; F17.210 Nicotine dependence, cigarettes, uncomplicated; Z87.442 Personal history of urinary calculi; W10.9XXA Fall (on) (from) unspecified stairs and steps, initial encounter
CPT/HCPCS: 99283

== ENCOUNTER 2017-11-13 01:01 | Outpatient (CLI) | END 2017-11-13 01:02 | disposition home or self-care (01) | LOC: AMBL 01:01 | PROVIDERS: ATTEND Internal Medicine Geriatric Medicine | DX: R10.10 Upper abdominal pain, unspecified (principal); R11.10 Vomiting, unspecified; R19.7 Diarrhea, unspecified ==

== ENCOUNTER 2018-03-06 13:03 | Emergency (ER) ==
[2018-03-06 13:24] VITALS: BP 98/64; TEMP 96.3; BMI 52.4
--- NOTE | 2018-03-06 15:06 | ED.PDOC ---
General ED Provider: Dr. KANDY LAU Chief Complaint: Extremity Pain/Injury Stated Complaint: CHRONIC RIGHT SHOULDER PAIN Time Seen by Physician: 13:30 (SEEN WITH LANA) Information Source: Patient Exam Limitations: No limitations Nursing and Triage Documentation Reviewed and Agree: Yes Does patient meet sepsis criteria?: No System Inflammatory Response Syndrome: Not Applicable Sepsis Protocol: For patient's 13 years and over: Temp is 96.8 and below OR 101 and greater Pulse >90 BPM Resp >20/minute Acutely Altered Mental Status Are patient's symptoms suggestive of a new infection, such as: -Pneumonia -Skin, Soft Tissue -Endocarditis -UTI -Bone, Joint Infection -Implantable Device -Acute Abdominal Infection -Wound Infection -Meningitis -Blood Stream Catheter Infection -Unknown Musculoskeletal Complaint Exam - Shoulder Pain Complaint/Exam Mechanism of Injury: Reports: No known trauma Onset/Duration: 3 MONTHS Symptoms Are: Still present Timing: Constant Initial Severity: Mild Current Severity: Mild Location: Reports: Discrete Character: Reports: Aching Alleviating: Reports: Rest Aggravating: Reports: Movement Associated Signs and Symptoms: Denies: Swelling, Redness, Bruising, Fever, Weakness, Numbness, Tingling Related History: Reports: Similar episode Non-Orthopedic Risk Factors: Reports: None DVT Risk Factors: Reports: None Septic Arthritis Risk Factors: Reports: None Related Surgical History: Reports: None Shoulder Findings: Absent: Swelling, Ecchymosis, Abnormal contour, Rotation, Ligamentous instability Tenderness: Present: Proximal humerus Limited Range of Motion: Present: Rotator cuff insertion Differential Diagnoses: Rotator Cuff Injury Review of Systems - Review Of Systems Constitutional: Reports: No symptoms Eyes: Reports: No symptoms Ears, Nose, Mouth, Throat: Reports: No symptoms Respiratory: Reports: No symptoms Cardiac: Reports: No symptoms GI: Reports: No symptoms : Reports: No symptoms Musculoskeletal: Reports: Joint pain (RIGHT SHOULDER) Skin: Reports: No symptoms Neurological: Reports: No symptoms Endocrine: Reports: No symptoms Hematologic/Lymphatic: Reports: No symptoms All Other Systems: Reviewed and Negative Past Medical History - Past Medical History Previously Healthy: Yes Endocrine: Reports: Unknown Cardiovascular: Reports: Unknown Respiratory: Reports: Unknown Hematological: Reports: Unknown Gastrointestinal: Reports: Unknown Genitourinary: Reports: Kidney stones Neuro/Psych: Reports: None Musculoskeletal: Reports: None Cancer: Reports: None Last Menstrual Period: 2014 - Surgical History General Surgical History: Reports: Unknown - Family History Family History: Reports: Unknown - Social History Smoking Status: Current every day smoker Hx Substance Use: No Alcohol Screening: None - Immunizations Tetanus Shot up to Date: Yes Physical Exam - Physical Exam Appearance: Well-appearing, No pain distress, Well-nourished Eyes: MARTIN, EOMI, Conjunctiva clear ENT: Ears normal, Nose normal, Oropharynx normal Respiratory: Airway patent, Breath sounds clear, Breath sounds equal, Respirations nonlabored Cardiovascular: RRR, Pulses normal, No rub, No murmur GI/: Soft, Nontender, No masses, Bowel sounds normal, No Organomegaly Musculoskeletal: Normal strength, ROM intact, No edema, No calf tenderness Skin: Warm, Dry, Normal color Neurological: Sensation intact, Motor intact, Reflexes intact, Cranial nerves intact, Alert, Oriented Psychiatric: Affect appropriate, Mood appropriate Critical Care Note - Critical Care Note Total Time (mins): 0 Course - Course Vital Signs: Temp Pulse Resp BP Pulse Ox 03/06/18 13:20 96.3 F L 90 20 98/64 98 Departure - Departure Time of Disposition: 15:07 Disposition: HOME SELF-CARE Discharge Problem: Rotator cuff (capsule) sprain Qualifiers: Encounter type: initial encounter Laterality: right Qualified Code(s): S43.421A - Sprain of right rotator cuff capsule, initial encounter Instructions: Rotator Cuff Tendinitis (ED) Condition: Good Pt referred to PMD for follow-up: Yes IPMP verified?: No Additional Instructions: Please call your Family Physician as soon as possible to schedule a follow-up appointment.CONTACT [facility] FOR M.R.R OF THE SHOULDER Allergies/Adverse Reactions: Allergies clarithromycin [From Biaxin] Adverse Reaction (Verified 11/05/17 12:13) Home Medications: Ambulatory Orders Albuterol Sulfate [Proair Hfa] 2 puff IH Q4H PRN 04/12/17
== END 2018-03-06 15:13 | disposition home or self-care (01) ==
LOC: ED 13:03
DX: S43.421A Sprain of right rotator cuff capsule, initial encounter (principal); F17.210 Nicotine dependence, cigarettes, uncomplicated
CPT/HCPCS: 99282

== ENCOUNTER 2018-04-16 15:19 | Emergency (ER) ==
[2018-04-16 15:25] VITALS: BP 155/110; TEMP 100.9; BMI 49.9
[2018-04-16] MEDS ORDERED: SODIUM CHLORIDE 1,000 ML IV STA (15:52)
[2018-04-16] MEDS ORDERED: DILAUDID 1 MG/ML SYRINGE IVP STA (15:52)
[2018-04-16] MEDS ORDERED: DUONEB NEB STA (16:07)
[2018-04-16] MEDS ORDERED: DECADRON 4 MG/ML SDV IV STA (16:08)
--- NOTE | 2018-04-16 16:44 | CT ---
EXAM: CT of the abdomen pelvis without contrast History: Lower abdominal pain and back pain, vomiting. Comparison: CT abdomen pelvis 10/18/2017 Technique: Multiplanar CT images through the abdomen pelvis were obtained without the administration of IV contrast Findings: Motion artifact. Bibasilar lung infiltrates suspicious for pneumonia. No acute osseous abnormalities. A few prominen t posterior disc osteophyte complexes within the lower thoracic and lumbar spine. High density material seen within the gallbladder. No focal liver or splenic lesions. There is some mild to moderate atrophy of the pancreas. No peripancreatic inflammation. Adrenal glands are unrem arkable. There is contrast seen within the bilateral renal collecting systems probably from recent I V contrast enhanced study. The contrast makes evaluation for renal calculi difficult. Possible 2 mm calculus within the proximal right ureter. There is mild right hydronephrosis. No bladder wall thi ckening. Contrast is seen within the bladder. Uterus is not seen and likely has been surgically rem kareem. No perirectal inflammation. No bowel obstruction. No free air and no ascites. The appendix is normal. Impression: 1. Contrast material is seen within the bilateral renal collecting systems probably from recent IV c ontrast enhancement. 2. Possible 2 mm calculus within the proximal right ureter and there is mild right hydronephrosis. 3. High density material seen within the gallbladder probably due to vicarious excretion. 4. Bibasilar lung infiltrates suspicious for pneumonia. 5. Mild to moderate atrophy of the pancreas.
--- NOTE | 2018-04-16 16:54 | ED.PDOC ---
General ED Provider: Dr. KANDY LAU Chief Complaint: Kidney Stone Stated Complaint: right flank pain was seen at [facility] for the same issue last night was susposed to follow up by doctor mcgregor but due to pain came to assac did not see the urologist . Time Seen by Physician: 15:20 (RN PRESENT DURING THE EXAM ) Mode of Arrival: Wheelchair Information Source: Patient Exam Limitations: No limitations Primary Care Provider: KATHY URIBE Nursing and Triage Documentation Reviewed and Agree: Yes Does patient meet sepsis criteria?: No If yes, has appropriate treatment been initiated?: No (DUE TO PAIN STARTED WHEEZING IN THE EMERGENCY DEPARTMENT NEGATIVE RESP DIST) System Inflammatory Response Syndrome: Not Applicable Sepsis Protocol: For patient's 13 years and over: Temp is 96.8 and below OR 101 and greater Pulse >90 BPM Resp >20/minute Acutely Altered Mental Status Are patient's symptoms suggestive of a new infection, such as: -Pneumonia -Skin, Soft Tissue -Endocarditis -UTI -Bone, Joint Infection -Implantable Device -Acute Abdominal Infection -Wound Infection -Meningitis -Blood Stream Catheter Infection -Unknown Review of Systems - Review Of Systems Constitutional: Reports: No symptoms Eyes: Reports: No symptoms Ears, Nose, Mouth, Throat: Reports: No symptoms Respiratory: Reports: Wheezing Cardiac: Reports: No symptoms GI: Reports: No symptoms : Reports: No symptoms Musculoskeletal: Reports: Back pain Skin: Reports: No symptoms Neurological: Reports: No symptoms Endocrine: Reports: No symptoms Hematologic/Lymphatic: Reports: No symptoms All Other Systems: Reviewed and Negative Past Medical History - Past Medical History Previously Healthy: Yes Endocrine: Reports: Unknown Cardiovascular: Reports: Unknown Respiratory: Reports: Unknown Hematological: Reports: Unknown Gastrointestinal: Reports: Unknown Genitourinary: Reports: Kidney stones Neuro/Psych: Reports: None Musculoskeletal: Reports: None Cancer: Reports: None Last Menstrual Period: none - Surgical History General Surgical History: Reports: Unknown - Family History Family History: Reports: Unknown - Social History Smoking Status: Current every day smoker Hx Substance Use: No Alcohol Screening: None Physical Exam - Physical Exam Appearance: Well-appearing, No pain distress, Well-nourished Eyes: MARTIN, EOMI, Conjunctiva clear ENT: Ears normal, Nose normal, Oropharynx normal Respiratory: Airway patent, Breath sounds clear, Breath sounds equal, Respirations nonlabored Cardiovascular: RRR, Pulses normal, No rub, No murmur GI/: Soft, Nontender, No masses, Bowel sounds normal, No Organomegaly Musculoskeletal: Normal strength, ROM intact, No edema, No calf tenderness Skin: Warm, Dry, Normal color Neurological: Sensation intact, Motor intact, Reflexes intact, Cranial nerves intact, Alert, Oriented Psychiatric: Affect appropriate, Mood appropriate Interpretation - Radiology Interpretation Radiology Interpretation By: Radiologist Radiology Results: Positive (2MM STONE IN THE PROXIMAL RIGHT URETER) Critical Care Note - Critical Care Note Total Time (mins): 0 Course - Course Hematology/Chemistry: 04/16/18 16:14 04/16/18 16:14 Orders, Labs, Meds: Lab Review 04/16/18 04/16/18 16:14 16:14 WBC 6.24 RBC 4.15 L Hgb 12.6 Hct 38.0 MCV 91.6 MCH 30.4 MCHC 33.2 RDW Coeff of Desmond 13.3 Plt Count 233 Immature Gran % (Auto) 0.3 Neut % (Auto) 83.0 Lymph % (Auto) 9.3 L Woodward % (Auto) 6.1 Eos % (Auto) 0.8 Baso % (Auto) 0.5 Immature Gran # (Auto) 0.0 Neut # (Auto) 5.2 Lymph # (Auto) 0.6 Woodward # (Auto) 0.4 Eos # (Auto) 0.1 Baso # (Auto) 0.0 Sodium 138.5 Potassium 4.49 Chloride 106.8 Carbon Dioxide 22.9 Anion Gap 13.29 BUN 8.7 Creatinine 0.71 Estimated GFR (MDRD) 96.00 BUN/Creatinine Ratio 12.25 Glucose 88.7 Calcium 8.98 Total Bilirubin 0.28 AST 43.2 H ALT 36.6 H Alkaline Phosphatase 77.8 Total Protein 7.18 Albumin 4.03 Globulin 3.15 Albumin/Globulin Ratio 1.27 Orders Category Date Time Status NEBULIZER TREATMENT Stat CARDIO 04/16/18 16:08 Ordered ED IV/MEDIPORT/POWERPORT .ONCE EMERGENCY 04/16/18 15:51 Active CBC W/ AUTO DIFF Stat LAB 04/16/18 15:51 Ordered COMPREHENSIVE METABOLIC PANEL Stat LAB 04/16/18 15:51 Ordered URINALYSIS C & S IF INDICATED Stat LAB 04/16/18 15:59 Ordered 0.9 % Sodium Chloride [Saline Flush] MEDS 04/16/18 15:51 Active 1 syr IVF PRN PRN Dexamethasone 4 mg/ml Inj [Decadron 4 mg/ml Sdv] MEDS 04/16/18 16:08 Stat 4 mg IV ONCE STA Hydromorphone HCl [Dilaudid 1 mg/ml Syringe] MEDS 04/16/18 15:52 Discontinued 0.5 mg IVP ONCE STA Ipratropium/Albuterol Neb [Duoneb] MEDS 04/16/18 16:07 Stat 1 vial NEB ONCE STA Sodium Chloride 0.9% [Sodium Chloride] 1,000 ml MEDS 04/16/18 15:[address] ABD/PEL WO RENAL STONE PROT Stat RADS 04/16/18 15:51 Ordered Medications Generic Name Dose Route Start Last Admin Trade Name Freq PRN Reason Stop Dose Admin Sodium Chloride 1 syr 04/16/18 15:51 04/16/18 16:42 Saline Flush IVF 1 syr PRN PRN Administration To flush IV Discontinued Medications Generic Name Dose Route Start Last Admin Trade Name Freq PRN Reason Stop Dose Admin Albuterol/Ipratropium 1 vial 04/16/18 16:07 04/16/18 16:25 Duoneb NEB 04/16/18 16:08 1 vial ONCE STA Administration Dexamethasone Sodium Phosphate 4 mg 04/16/18 16:08 04/16/18 16:42 Decadron 4 Mg/Ml Sdv IV 04/16/18 16:09 4 mg ONCE STA Administration Hydromorphone HCl 0.5 mg 04/16/18 15:52 04/16/18 16:42 Dilaudid 1 Mg/Ml Syringe IVP 04/16/18 15:53 0.5 mg ONCE STA Administration Sodium Chloride 1,000 mls @ 1,000 mls/hr 04/16/18 15:52 04/16/18 16:42 Sodium Chloride IV 04/16/18 16:51 1,000 mls/hr BOLUS STA Administration Vital Signs: Temp Pulse Resp BP Pulse Ox 04/16/18 15:19 100.9 F H 107 H 20 155/110 H 94 L Departure - Departure Time of Disposition: 16:54 Disposition: HOME SELF-CARE Discharge Problem: Kidney stone Instructions: Renal Colic (ED), Kidney Stones (ED), Flank Pain (ED) Condition: Good Pt referred to PMD for follow-up: Yes IPMP verified?: No Additional Instructions: Please call your Family Physician as soon as possible to schedule a follow-up appointment. Prescriptions: Hydrocodone/Acetaminophen [Pendroy 10-325 Tablet] 1 each PO Q8HR #7 tablet Allergies/Adverse Reactions: Allergies clarithromycin [From Biaxin] Adverse Reaction (Verified 11/05/17 12:13) dexamethasone [From Decadron] Adverse Reaction (Verified 04/16/18 15:26) Home Medications: Ambulatory Orders Albuterol Sulfate [Proair Hfa] 2 puff IH Q4H PRN 04/12/17 Hydrocodone/Acetaminophen [Pendroy 10-325 Tablet] 1 each PO Q8HR #7 tablet
== END 2018-04-16 17:41 | disposition home or self-care (01) ==
LOC: ED 15:19
DX: N20.0 Calculus of kidney (principal); R10.31 Right lower quadrant pain; R06.2 Wheezing; M54.5 Low back pain
CPT/HCPCS: 36415; 74176; 80053; 81001; 85025; 94640; 96361; 96374; 96375; 99283

== ENCOUNTER 2018-04-21 22:51 | Emergency (ER) ==
[2018-04-21 23:03] VITALS: BP 163/112; TEMP 99.9; BMI 51.7
--- NOTE | 2018-04-21 23:13 | ED.PDOC ---
General ED Provider: Dr. MARY PETERSON MD Chief Complaint: Urinary Problem Stated Complaint: kidney stone hurts Time Seen by Physician: 23:10 Mode of Arrival: Walk-In Information Source: Patient Exam Limitations: No limitations Primary Care Provider: KATHY URIBE Nursing and Triage Documentation Reviewed and Agree: Yes Does patient meet sepsis criteria?: No If yes, has appropriate treatment been initiated?: Yes System Inflammatory Response Syndrome: Not Applicable Sepsis Protocol: For patient's 13 years and over: Temp is 96.8 and below OR 101 and greater Pulse >90 BPM Resp >20/minute Acutely Altered Mental Status Are patient's symptoms suggestive of a new infection, such as: -Pneumonia -Skin, Soft Tissue -Endocarditis -UTI -Bone, Joint Infection -Implantable Device -Acute Abdominal Infection -Wound Infection -Meningitis -Blood Stream Catheter Infection -Unknown Review of Systems - Review Of Systems Constitutional: Reports: No symptoms Eyes: Reports: No symptoms Ears, Nose, Mouth, Throat: Reports: No symptoms Respiratory: Reports: No symptoms Cardiac: Reports: No symptoms GI: Reports: Abdominal pain, Nausea : Reports: Incontinence Musculoskeletal: Reports: No symptoms Skin: Reports: No symptoms Neurological: Reports: No symptoms Endocrine: Reports: No symptoms Hematologic/Lymphatic: Reports: No symptoms All Other Systems: Reviewed and Negative Past Medical History - Past Medical History Previously Healthy: Yes Endocrine: Reports: Unknown Cardiovascular: Reports: Unknown Respiratory: Reports: Unknown Hematological: Reports: Unknown Gastrointestinal: Reports: Unknown Genitourinary: Reports: Kidney stones Neuro/Psych: Reports: None Musculoskeletal: Reports: None Cancer: Reports: None Last Menstrual Period: 2014 - Surgical History General Surgical History: Reports: Unknown - Family History Family History: Reports: Unknown - Social History Smoking Status: Former smoker Hx Substance Use: No Alcohol Screening: None - Immunizations Tetanus Shot up to Date: Yes Physical Exam - Physical Exam Appearance: Obese Ill-appearing: Mild Pain Distress: Moderate Eyes: MARTIN, EOMI, Conjunctiva clear ENT: Ears normal, Nose normal, Oropharynx normal Neck: Supple Respiratory: Airway patent, Breath sounds clear, Breath sounds equal, Respirations nonlabored Cardiovascular: RRR GI/: Tender Musculoskeletal: Normal strength, ROM intact, No edema, No calf tenderness Skin: Warm, Dry, Normal color Neurological: Sensation intact, Motor intact, Reflexes intact, Cranial nerves intact, Alert, Oriented Psychiatric: Mood appropriate, Anxious Critical Care Note - Critical Care Note Total Time (mins): 0 Course - Course Orders, Labs, Meds: Orders Category Date Time Status IV [ED IV/MEDIPORT/POWERPORT] .ONCE EMERGENCY 04/21/18 23:47 Active 0.9 % Sodium Chloride [Saline Flush] MEDS 04/21/18 23:47 Ordered 1 syr IVF PRN PRN Ketorolac Tromethamine [Toradol] MEDS 04/21/18 23:14 Discontinued 60 mg IM ONCE STA CT ABD/PEL WO RENAL STONE PROT Stat RADS 04/21/18 23:13 Completed Medications Generic Name Dose Route Start Last Admin Trade Name Freq PRN Reason Stop Dose Admin Sodium Chloride 1 syr 04/21/18 23:47 Saline Flush IVF PRN PRN To flush IV Discontinued Medications Generic Name Dose Route Start Last Admin Trade Name Freq PRN Reason Stop Dose Admin Ketorolac Tromethamine 60 mg 04/21/18 23:14 04/21/18 23:15 Toradol IM 04/21/18 23:15 60 mg ONCE STA Administration Vital Signs: Temp Pulse Resp BP Pulse Ox 04/21/18 22:51 99.9 F H 82 22 163/112 H 98 Departure - Departure Time of Disposition: 00:05 Disposition: HOME SELF-CARE Discharge Problem: Nephrolithiasis Condition: Good Pt referred to PMD for follow-up: Yes IPMP verified?: No Prescriptions: Acetaminophen with Codeine [Tylenol #3 Tab] 1 tab PO Q6H 5 Days #15 tablet Allergies/Adverse Reactions: Allergies clarithromycin [From Biaxin] Adverse Reaction (Verified 04/21/18 23:03) dexamethasone [From Decadron] Adverse Reaction (Verified 04/21/18 23:03) Rash Home Medications: Ambulatory Orders Hydrocodone/Acetaminophen [[place] 10-325 Tablet] 1 each PO Q8HR #7 tablet Acetaminophen with Codeine [Tylenol #3 Tab] 1 tab PO Q6H 5 Days #15 tablet 04/22
[2018-04-21] MEDS ORDERED: TORADOL IM STA (23:14)
--- NOTE | 2018-04-21 23:41 | CT ---
EXAM: CT of the abdomen and pelvis without contrast. HISTORY: Pelvic pain. PROCEDURE: Contiguous axial CT images of the abdomen and pelvis without contrast with coronal and sa gittal reformats. FINDINGS: There is minimal bibasilar atelectasis. The liver, gallbladder, pancreas, spleen and adren al glands are normal in appearance. There is a 2 mm calcification in the proximal right ureter with mild right hydronephrosis and hydroureter. There are nonobstructive calcifications in both kidneys. The abdominal aorta is normal in appearance. The visualized loops of bowel and appendix are normal in appearance. No free fluid or free air in the abdomen or pelvis. The bladder is adequately filled and normal in appearance. The uterus is surgically absent. The bones and soft tissues are unremark able. Impression: Right ureterolithiasis as described with mild right hydronephrosis and hydroureter. Nonobstructive bilateral nephrolithiasis as described. Hysterectomy.
[2018-04-22] MEDS ORDERED: SOMA PO STA (00:03)
== END 2018-04-22 00:25 | disposition home or self-care (01) ==
LOC: ED 22:51
DX: N20.0 Calculus of kidney (principal); R10.9 Unspecified abdominal pain; R11.0 Nausea
CPT/HCPCS: 74176; 96372; 99283

== ENCOUNTER 2018-05-04 13:07 | Outpatient (CLI) ==
[2018-05-04 13:30] VITALS: BMI 51.6
== END 2018-05-04 13:13 | disposition critical access hospital (66) ==
LOC: AMBL 13:07
PROVIDERS: ATTEND Emergency Medicine
DX: R11.2 Nausea with vomiting, unspecified (principal); R19.7 Diarrhea, unspecified; R10.12 Left upper quadrant pain; R00.0 Tachycardia, unspecified

== ENCOUNTER 2018-05-04 13:26 | Emergency (ER) ==
[2018-05-04 13:30] VITALS: BP 158/117; BMI 51.6
[2018-05-04 13:34] VITALS: TEMP 97
[2018-05-04] MEDS ORDERED: TORADOL IVP STA (13:51)
[2018-05-04] MEDS ORDERED: ZOFRAN 4 MG/2 ML IVP STA (13:51)
--- NOTE | 2018-05-04 14:25 | ED.PDOC ---
General ED Provider: Dr. RYAN CALLES Chief Complaint: Nausea/Vomiting Stated Complaint: left epigastric pain Time Seen by Physician: 01:25 Mode of Arrival: Ambulance Information Source: Patient, EMT Exam Limitations: No limitations Primary Care Provider: KATHY URIBE Nursing and Triage Documentation Reviewed and Agree: Yes Does patient meet sepsis criteria?: No System Inflammatory Response Syndrome: Not Applicable Sepsis Protocol: For patient's 13 years and over: Temp is 96.8 and below OR 101 and greater Pulse >90 BPM Resp >20/minute Acutely Altered Mental Status Are patient's symptoms suggestive of a new infection, such as: -Pneumonia -Skin, Soft Tissue -Endocarditis -UTI -Bone, Joint Infection -Implantable Device -Acute Abdominal Infection -Wound Infection -Meningitis -Blood Stream Catheter Infection -Unknown GI Complaint Exam - Abdominal Pain Complaint/Exam Onset: Gradual Duration: two days Symptoms Are: Still present Timing: Constant Initial Severity: Moderate Current Severity: Mild Location of Pain: LUQ, Epigastric Radiates To: Reports: Flank Character: Reports: Dull, Aching Aggravating: Reports: Movement Alleviating: Reports: Position Associated Signs and Symptoms: Reports: Nausea, Vomiting Ectopic Risk Factors: Reports: None Ovarian Torsion Risk Factors: Reports: None Surgical Obstruction Risk Factors: Reports: None Related Surgical History: Reports: None Abdominal Findings: Present: None Differential Diagnoses: Diverticulitis, Gastroenteritis, Irritable Bowel Syndrome Quality Indicator For Non-Traumatic Chest Pain/Syncope: EKG Performed Review of Systems - Review Of Systems Constitutional: Reports: Malaise Eyes: Reports: No symptoms Ears, Nose, Mouth, Throat: Reports: No symptoms Respiratory: Reports: No symptoms Cardiac: Reports: No symptoms GI: Reports: No symptoms : Reports: No symptoms Musculoskeletal: Reports: No symptoms Skin: Reports: No symptoms Neurological: Reports: No symptoms Endocrine: Reports: No symptoms Hematologic/Lymphatic: Reports: No symptoms All Other Systems: Reviewed and Negative Past Medical History - Past Medical History Previously Healthy: Yes Endocrine: Reports: Unknown Cardiovascular: Reports: Unknown Respiratory: Reports: Unknown Hematological: Reports: Unknown Gastrointestinal: Reports: Unknown Genitourinary: Reports: Kidney stones Neuro/Psych: Reports: None Musculoskeletal: Reports: None Cancer: Reports: None Last Menstrual Period: none - Surgical History General Surgical History: Reports: Unknown - Family History Family History: Reports: Unknown - Social History Smoking Status: Former smoker Hx Substance Use: No Alcohol Screening: None Physical Exam - Physical Exam Appearance: Obese Ill-appearing: Mild Pain Distress: Moderate Eyes: MARTIN ENT: Ears normal Neck: Supple Respiratory: Airway patent, Breath sounds diminished Cardiovascular: RRR GI/: Soft Musculoskeletal: Normal strength Skin: Warm Neurological: Sensation intact Interpretation - Radiology Interpretation Radiology Interpretation By: Radiologist Radiology Results: Positive Exam Interpreted: CT Scan Xray Comments: gasreoenteritis,no bowel obstructuin Critical Care Note - Critical Care Note Total Time (mins): 0 Course - Course Hematology/Chemistry: 05/04/18 15:15 05/04/18 15:15 Orders, Labs, Meds: Lab Review 05/04/18 05/04/18 05/04/18 15:15 15:15 16:08 WBC 13.57 H RBC 4.59 Hgb 13.9 Hct 42.9 MCV 93.5 MCH 30.3 MCHC 32.4 RDW Coeff of [place] 13.5 Plt Count 317 Immature Gran % (Auto) 0.3 Neut % (Auto) 82.7 Lymph % (Auto) 8.8 L [place] % (Auto) 6.9 Eos % (Auto) 1.0 Baso % (Auto) 0.3 Immature Gran # (Auto) 0.0 Neut # (Auto) 11.2 H Lymph # (Auto) 1.2 [place] # (Auto) 0.9 Eos # (Auto) 0.1 Baso # (Auto) 0.0 Sodium 140.7 Potassium 4.72 Chloride 111.0 H Carbon Dioxide 19.8 L Anion Gap 14.62 BUN 15.5 Creatinine 0.76 Estimated GFR (MDRD) 89.00 BUN/Creatinine Ratio 20.39 Glucose 121.0 H Calcium 9.19 Total Bilirubin 0.70 AST 30.1 ALT 35.4 H Alkaline Phosphatase 74.8 Total Protein 7.34 Albumin 4.15 Globulin 3.19 Albumin/Globulin Ratio 1.30 Amylase 43.4 Lipase 36.1 Urine Color Yellow Urine Clarity Clear Urine pH 5.5 Ur Specific [place] 1.025 Urine Protein Trace Urine Glucose (UA) Negative Urine Ketones Negative Urine Blood Negative Urine Nitrite Negative Urine Bilirubin Negative Urine Urobilinogen 0.2 Ur Leukocyte Esterase Negative Urine Microscopic RBC 2-5 Urine Microscopic WBC 2-5 Ur Squamous Epith Cells 20-30 Amorphous Sediment Trace Urine Bacteria 2+ Urine Mucus 2+ Orders Category Date Time Status IV [ED IV/MEDIPORT/POWERPORT] .ONCE EMERGENCY 05/04/18 14:53 Active AMYLASE Stat LAB 05/04/18 15:15 Completed CBC W/ AUTO DIFF Stat LAB 05/04/18 15:15 Completed COMPREHENSIVE METABOLIC PANEL Stat LAB 05/04/18 15:15 Completed LIPASE Stat LAB 05/04/18 15:15 Completed URINALYSIS WITH MICROSCOPIC Stat LAB 05/04/18 16:08 Completed 0.9 % Sodium Chloride [Saline Flush] MEDS 05/04/18 14:53 Ordered 1 syr IVF PRN PRN Ceftriaxone Sodium [Rocephin] MEDS 05/04/18 16:09 Discontinued 1 gm .ROUTE .STK-MED ONE Ceftriaxone Sodium [Rocephin] 1 gm MEDS 05/04/18 16:00 Discontinued 0.9 % Sodium Chloride [Sodium Chloride] 50 ml IV ONCE Hydromorphone HCl [Dilaudid 0.5 mg/0.5 ml Syringe] MEDS 05/04/18 15:22 Discontinued 0.5 mg IVP ONCE STA Ketorolac Tromethamine [Toradol] MEDS 05/04/18 13:51 Discontinued 30 mg IVP ONCE STA Mag-Al Plus//Lidocaine [Gi Cocktail] MEDS 05/04/18 14:57 Discontinued 30 ml PO ONCE STA Ondansetron HCl/Pf [Zofran 4 mg/2 ml] MEDS 05/04/18 13:51 Discontinued 8 mg IVP ONCE STA Sodium Chloride 0.9% [Sodium Chloride] 500 ml MEDS 05/04/18 14:[address] ABDOMEN/PELVIS WO CONTRAST Stat RADS 05/04/18 14:43 Completed Medications Generic Name Dose Route Start Last Admin Trade Name Freq PRN Reason Stop Dose Admin Sodium Chloride 1 syr 05/04/18 14:53 Saline Flush IVF PRN PRN To flush IV Discontinued Medications Generic Name Dose Route Start Last Admin Trade Name Freq PRN Reason Stop Dose Admin Al Hydroxide/Mg Hydroxide 30 ml 05/04/18 14:57 05/04/18 15:07 Gi Cocktail PO 05/04/18 14:58 30 ml ONCE STA Administration Hydromorphone HCl 0.5 mg 05/04/18 15:22 05/04/18 15:36 Dilaudid 0.5 Mg/0.5 Ml Syringe IVP 05/04/18 15:23 0.5 mg ONCE STA Administration Sodium Chloride 500 mls @ 500 mls/hr 05/04/18 14:54 05/04/18 15:07 Sodium Chloride IV 05/04/18 15:53 500 mls/hr BOLUS STA Administration Ceftriaxone Sodium 1 gm/ 50 mls @ 75 mls/hr 05/04/18 16:00 05/04/18 16:14 Sodium Chloride IV 05/04/18 16:39 75 mls/hr ONCE STA Administration Ketorolac Tromethamine 30 mg 05/04/18 13:51 05/04/18 14:01 Toradol IVP 05/04/18 13:52 30 mg ONCE STA Administration Ondansetron HCl 8 mg 05/04/18 13:51 05/04/18 14:00 Zofran 4 Mg/2 Ml IVP 05/04/18 13:52 8 mg ONCE STA Administration Vital Signs: Temp Pulse Resp BP Pulse Ox 05/04/18 13:26 97.0 F L 108 H 20 158/117 H 98 Departure - Departure Time of Disposition: 16:51 Disposition: HOME SELF-CARE Discharge Problem: Upset stomach Instructions: Gastroenteritis (ED) Condition: Good Pt referred to PMD for follow-up: No (follow with PCP of choice) IPMP verified?: No Additional Instructions: Follow up with your PCP Take medication as prescribed If worse, may return Flagyl 500mg 1 tab three times a day for 7 day (21 tabs) Ciproflooxacin 500mg 1 tab twice a day for 5 days (10 tabs) Allergies/Adverse Reactions: Allergies clarithromycin [From Biaxin] Adverse Reaction (Verified 05/04/18 13:30) dexamethasone [From Decadron] Adverse Reaction (Verified 05/04/18 13:30) Rash Home Medications: Ambulatory Orders 1 [No Reported Medications] 05/04/18 Disposition Discussed With: Patient, Family
[2018-05-04] MEDS ORDERED: SODIUM CHLORIDE 500 ML IV STA (14:54)
[2018-05-04] MEDS ORDERED: GI COCKTAIL PO STA (14:57)
--- NOTE | 2018-05-04 15:20 | CT ---
EXAM: CT of the abdomen pelvis without contrast History: Epigastric abdominal pain. Nausea and vomiting. Comparison: CT abdomen pelvis 10/18/2017 Technique: Multiplanar CT images through the abdomen pelvis were obtained without the administration of IV contrast Findings: Lung bases are clear. No acute osseous abnormalities. Bilateral renal calculi measuring up to 2 mm bilaterally. No hydronephrosis and no perinephric stran ding. No ureteral calculi. Nondilated fluid filled loops of large and small bowel. No bowel obstru ction. The appendix is normal. No bladder wall thickening. No free air and no ascites. No discret e gallstones identified by CT. No focal liver or splenic lesions. No peripancreatic inflammation. Adrenal glands are unremarkable. The uterus is not seen and likely has been surgically removed. Impression: 1. Mild gastroenteritis. No bowel obstruction. 2. Nonobstructing bilateral nephrolithiasis.
[2018-05-04] MEDS ORDERED: DILAUDID 0.5 MG/0.5 ML SYRINGE IVP STA (15:22)
[2018-05-04] MEDS ORDERED: ROCEPHIN 1 GM in SODIUM CHLORIDE 50 ML IV STA (16:00)
[2018-05-04] MEDS ORDERED: ROCEPHIN ONE (16:09)
== END 2018-05-04 16:55 | disposition home or self-care (01) ==
LOC: ED 13:26
DX: R11.2 Nausea with vomiting, unspecified (principal); R10.13 Epigastric pain
CPT/HCPCS: 36415; 80053; 81001; 82150; 83690; 85025; 96361; 96365; 96375; 99284